=== PATIENT | male | born 1990 | race Caucasian/White ===

== ENCOUNTER 2024-08-09 02:57 | Observation (INO) | payer OTHER, SELFPAY ==
[2024-08-08 20:13] VITALS: BP 131/85
[2024-08-08 20:25] LABS: % Basophils 0.7 % (0-2); % Eosinophils 2.9 % (0-6); % Immature Granulocytes 0.3 % (0-0.5); % Lymphocytes 40.2 % (20.5-51.1); % Neutrophils 47.9 % (42.2-75.2); Absolute Basophils 0.1 10^3/uL (0-0.2); Absolute Eosinophils 0.2 10^3/uL (0-0.7); Absolute Monocytes 0.6 10^3/uL (0.1-0.6); Absolute Neutrophils 3.6 10^3/uL (1.4-6.5); Hematocrit 39.8 % (39.0-52.0); Mean Corp Hgb Conc. 35.2 g/dL (33.0-37.0); Mean Corpuscular Hgb 28.6 pg (27.0-31.0); Mean Corpuscular Volume 81.2 fL (80.0-94.0); Mean Platelet Volume 10.8 fL (7.4-10.4); Nucleated Red Blood Cells % 0 % (-); Platelet Count 259 10^3/uL (130-400); Red Cell Dist. Width 13.2 % (11.5-14.5); White Blood Cell Count 7.5 10^3/uL (4.8-10.8)
[2024-08-08 20:44] LABS: ALT (SGPT) 32 U/L (0-50); AST (SGOT) 28 U/L (17-59); Albumin 4.5 g/dl (3.5-5.0); Alkaline Phosphatase 78 U/L (38-126); Blood Urea Nitrogen 18 mg/dl (9-20); Calcium 9.5 mg/dl (8.4-10.2); Carbon Dioxide 26 mmol/L (22-30); Chloride 103 mmol/L (98-107); Glucose 124 mg/dl (70-99); Sodium 142 mmol/L (135-145); Total Bilirubin 0.5 mg/dl (0.2-1.3); Total Protein 7.4 g/dl (6.3-8.2); eGFR > 60.00
[2024-08-08 22:27] VITALS: BMI 31.5
[2024-08-08 22:29] VITALS: BP 143/72
[2024-08-08 23:00] VITALS: BP 107/62
--- NOTE | 2024-08-08 23:04 | ED.GENMED ---
History of Present Illness
General
Chief Complaint: Rectal Bleeding
Source: patient
Exam Limitations: none
Time Seen by Provider: 08/08/24 22:11
History of Present Illness
History of Present Illness:
This is a 33 year old male that comes in with c/o blood in his stool. State that he had blood in his stool on and off for a couple of years. States that he did see a colorectal and was told that he had fissures. States that he was told to increase
his fiber and it went away. Today he went to the Bathroom and his said that the toilet looked like he had a stool with a period. Denies any fever, chills, chest pain, SOB, abd pain, nausea, vomiting, diarrhea, headache, dizziness, urinary
burning.
Past History
Past History
ED Past Medical History: HTN, Hypercholesterolemia, NIDDM and Psychiatric (Anxiety)
ED Past Surgical History: Other ([place] teeth extraction, pilonidal cyst removal)
Social History
Tobacco: Non-smoker
Alcohol: None
Drug: None
Personal:
Living: with family
Employment: Employed
Review of Systems
Review of Systems
All Other Systems: ROS reviewed and negative except as documented in HPI and ROS
Constitutional: Reports no symptoms; Denies fever or chills
EENT: Reports no symptoms
Respiratory: Reports no symptoms; Denies cough or trouble breathing
Cardiac: Reports no symptoms; Denies chest pain
ABD/GI: Reports bloody stools; Denies abdominal pain, nausea, vomiting or diarrhea
: Reports no symptoms; Denies dysuria, frequency or urgency
Musculoskeletal: Reports no symptoms
Skin: Reports no symptoms
Neurological: Reports no symptoms; Denies dizzy or headache
Psychiatric: Reports no symptoms
Phy Exam
General Physical Exam
General Presentation: well appearing and no apparent distress
General age: appears stated age
General Skin: warm and dry
General Habitus: normal
General Mental: alert
General Hydration: dry mucous membranes
ENT Exam
ENT Exam: TM's normal, pharynx normal and neck supple
Eye Exam
Eye Exam: EOMI
Cardiovascular Exam
Cardiovascular Exam: regular rate/rhythm, no edema, no murmur and normal peripheral pulses
Pulmonary Exam
Pulmonary Exam: lungs clear, no respiratory distress, no rales, chest non tender, no crackles, no rhonchi, no wheezing and no cough
Gastrointestinal Exam
Gastrointestinal Exam: normal bowel sounds, non tender, soft, no organomegaly, no pulsatile mass, non distended and other (stool brown hem positive)
Musculoskeletal Exam
Musculoskeletal Exam: full ROM and no edema
Skin Exam
Skin Exam: normal color, warm/dry, no rash and no petechia
Psychiatric Exam
Psychiatric Exam: normal mood/affect
Course
Orders/Labs/Results
Orders:
Orders
08/08/24 20:20
Complete Blood Count/With Diff Urgent
Comprehensive Metabolic Panel Urgent
08/08/24 23:04
CT Abd/pelvis W Iv Cont Urgent
Comment:
Reason For Exam: Blood in his stool,
0.9% Sodium Chloride 500 ml [Nss] 500 ml IV BOLUS
Abnormal Lab Results
08/08/24
20:20
MPV 10.8 H fL
(7.4-10.4)
Glucose 124 H mg/dl
(70-99)
08/08/24 20:20
08/08/24 20:20
Hyperglycemia,
Vital Signs
Initial and Last Documented VS:
Initial Vital Signs
Temp Pulse Resp BP Pulse Ox
98.0 F 75 18 131/85 98
08/08/24 20:13 08/08/24 20:13 08/08/24 20:13 08/08/24 20:13 08/08/24 20:13
Last Documented Vital Signs
Temp Pulse Resp BP Pulse Ox
98.0 F 83 18 107/62 96
08/08/24 20:13 08/08/24 22:31 08/08/24 20:13 08/08/24 23:00 08/08/24 23:00
Md Pediatric Allergist consulted with Physician
[facility]d Pediatric Allergist consulted with physician?: Yes
Name of Physician Consulted: Alcides Murry
MDM/Problems Addressed
Differential Diagnosis Includes:
Colitis, Fissures,
MDM/Problems Addressed:
This is a 33 year old male that comes in with c/o blood in his stool when he went to the bathroom tonight.
Will check labs and get CT scan.
Back into see patient. Explained that his blood work was normal but with the rectal exam his stool appeared brown but was Hem positive. On the CT scan there is a questionable mass. Will admit patient for further evaluation.
Chronic conditions affecting care:
Fissures
Acute Exacerbation and/or Progression of Chronic Illness:
Fissures
*Radiology
Radiology exam reviewed: radiology read reviewed (CT Night hawk-Circumferential rectal wall thickening s present without associated inflammatory changes, mostly symmetric although mass not excluded particularly towards the left. Findings Could be
infectious/inflammatory although lack of inflammatory changes may suggest either subacute or chronic) and other (CT cont- process. remainder of the gastrointetinal tract appears normal. )
*Pulse Oximetry
Patient hypoxic: no
*EKG
Interpreted by ED Provider?: NA
Rate: EKG- N/A
*Waste Water Operator Interpretation
Rate: Waste Water Operator- N/A
*Critical Care Note
Total Time (30-74mins, 75-104mins- exclusive of procedures): Not Applicable
ED Attending Note
-
Portions of this chart may have been created with voice recognition software.� Occasional wrong word or��sound alike� substitutions may have occurred due to the inherent limitations of voice recognition software.
Discharge Plan
Departure
Patient Disposition: Admit
Date of Disposition: 08/09/24
Time of Disposition: 00:54
Admit to: Med/Surg
Presentation/result/management discussed w/ accepting MD/DO: Hospitalist
Patient with high blood pressure during this ER visit?: No
Condition: Good
Covid-19: Not Applicable
Discharge Problem:
Rectal bleeding, Rectal mass
Prescriptions:
No Action
azithromycin 250 MG tablet
250 mg PO DAILY Qty: 4 0RF
pantoprazole 40 MG tablet,delayed release (DR/EC)
40 mg PO DAILY Qty: 30 0RF
prednisone 50 MG tablet
50 mg PO DAILY Qty: 5 0RF
Referrals:
Kandis Delgado MD [Family Provider] -
Interventions
Interventions:
*Risk Screen - Suicide Last Done: 08/08/24 20:15
*General Assessment Last Done: 08/08/24 20:16
*Neglect/Abuse Screening Last Done: 08/08/24 20:15
ED- Fall Risk Assessment Last Done: 08/08/24 22:27
*ED COVID-19 Vaccine History Last Done: 08/08/24 20:15
DX-Blpoey-Uxprduydnj Assessment Last Done: 08/09/24 00:14
ED- Cardiac Assessment Last Done: 08/09/24 00:14
ED- Pulmonary Assessment Last Done: 08/09/24 00:14
Discharge Date and Time
Print Language: YAKUT
[2024-08-09] VITALS (17 sets, daily range): BP systolic 119–145; BP diastolic 82–108; PULSE 74–109; BMI 30.7
[2024-08-09] MEDS: NSS 500 IV (00:17)
--- NOTE | 2024-08-09 02:14 | HPS.HSE ---
Family Physician
-
Family Physician: Kandis Delgado
Chief Complaint
-
Rectal bleeding
History of Present Illness
This is a 23-year-old male with past medical history of ato-ukggtbs-ypjrfomrp diabetes, obesity and presents to the emergency department with subacute episode of rectal bleeding that appeared to be worse today.
Patient reports that he has a history of rectal bleeding that started about 1 year ago. He was seen by GI in January and was diagnosed with fissures. By the time he was placed on fiber supplementation. He reported that his symptoms did improve when
he had mild bleeding until recently. He says the bleeding started again about 2 to 3 weeks ago. He is pending an appointment with GI. He stated was able to tolerated but he had significant amount of bleeding today. Patient reports very mild
abdominal discomfort. There was no tenderness most. He denied having fevers or chills. He reports red blood mixed with stool. Patient denies any personal history of inflammatory bowel disease. Denies family history of inflammatory bowel
disease. He denies family history of colon cancer. Denies family history of bleeding diathesis or coagulopathy.
In the ED ED patient was afebrile blood pressure was 130s over 80, pulse was 76. Hemoglobin was within normal limits and unchanged from prior. He had a normal platelet count. Chemistries, BUN/creatinine were within normal limits. He had a CT of
the abdomen pelvis which showed circumferential rectal wall thickening without associated inflammatory changes mostly symmetric although a mass cannot be excluded. The rest of the gastrointestinal tract appeared normal.
Medical History
Past Medical History
Past Medical History: Reports NIDDM and Other (Obese)
Additional Past Medical History:
anal fissure
Past Surgical History: Reports None
Social History
Tobacco: Non-smoker
Alcohol: Occasional
Drug: None
Personal:
Living: With Family
Employment: Employed
Family History
Family History: Diabetes
Allergies / Home Medications
Allergies reflects when Allergies were last updated in [employer].
Home Medications with original date entered in [employer]
Allergy/Medication List:
Allergies
Allergy/AdvReac Type Severity Reaction Status Date / Time
No Known Allergies Allergy Unverified 08/27/19 10:45
Home Medications
canagliflozin 100 mg tablet (Invokana) 100 mg PO DAILY 08/09/24
fluoxetine 40 mg capsule 40 mg PO DAILY 08/09/24
glimepiride 2 mg tablet 2 mg PO BID 08/09/24
inulin 2 gram chewable tablet (Fiber Gummies) 3 PO 08/09/24
inulin-sorbitol 2 gram chewable tablet 1 tab PO BID 08/09/24
omega-3 fatty acids 1,000 mg PO DAILY 08/09/24
rosuvastatin 20 mg tablet 20 mg PO DAILY 08/09/24
tirzepatide 10 mg/0.5 mL subcutaneous pen injector (Mounjaro) 10 mg SC .Q WEEK Wednesdays08/09/24
Review of Systems
-
History Source: Patient
Constitutional: Reports No Symptoms
EENT: Reports No Symptoms
Respiratory: Reports No Symptoms
Cardiac: Reports No Symptoms
Abdomen/GI: Reports Bloody Stools
: Reports No Symptoms
Musculoskeletal: Reports No Symptoms
Skin: Reports No Symptoms
Neurological: Reports No Symptoms
Endocrine: Reports No Symptoms
Hematologic/Lymphatic: Reports No Symptoms
Psych: Reports No Symptoms
Physical Exam
Vital Signs
Vital Signs
Temp Pulse Resp BP Pulse Ox
98.0 F 76 17 133/82 96
08/08/24 20:13 08/09/24 01:01 08/09/24 00:00 08/09/24 00:13 08/09/24 01:00
Physical Exam
General: Well Developed, Well Nourished, No Apparent Distress and Comfortable
HEENT: NormoCephalic, Anicteric, Moist mucous membranes and Atraumatic
Respiratory: Clear
Cardiac: S1/S2
Breast: Deferred by me
GI: Soft, Non Tender, Non Distended and Normal Bowel Sounds
Rectal: Brown and Red
Musculoskeletal: No Clubbing, No Cyanosis and No Edema
Skin: Warm
Neuro: AO x 3
Hematologic/Lymphatic: No Lymphadenopathy
Psych: Calm
Laboratory Results
-
08/08/24 20:20
08/08/24 20:20
Laboratory Results
Total Bilirubin 0.5 mg/dl (0.2-1.3) 08/08/24 20:20
AST 28 U/L (17-59) 08/08/24 20:20
ALT 32 U/L (0-50) 08/08/24 20:20
Alkaline Phosphatase 78 U/L (38-126) 08/08/24 20:20
Data Reviewed
-
CT Scan: Report Reviewed by me
Lab Data: Labs Reviewed by me
Old Records: Reviewed
Impression/Plan
-
IMPRESSION:
Patient with h/o anal fissue, dm II, comes in with subacute rectal bleeding. No history of crohns. The CT scan is not describing inflammatory changes but fissures seem painless based on history. There is a questionable rectal mass on CT scan.
PLAN:
1.Rectal bleeding - bright per rectum mixed with stools. Possibly hemorrhoidal versus related to anal fissure. hemodynamically stable. No current bleeding. Hgb normal.
- admit to med/surg observation
- clear liquid diet for now
- trend h/h
- laxatives prn
- CT w/ question of rectal mass, GI consult
2. DM II
- continue glimepride
- bs achs
- continue statin
DVT PPX - SCDs
Code Status - Full
[2024-08-09 06:55] LABS: Hematocrit 40.6 % (39.0-52.0); Hemoglobin 14.4 g/dL (13.0-18.0); Mean Corp Hgb Conc. 35.5 g/dL (33.0-37.0); Mean Corpuscular Hgb 29.4 pg (27.0-31.0); Mean Corpuscular Volume 82.9 fL (80.0-94.0); Platelet Count 236 10^3/uL (130-400); Red Cell Dist. Width 12.8 % (11.5-14.5)
[2024-08-09 07:05] LABS: INR 1.03; PT 13.3 Sec (11.4-14.6)
[2024-08-09] MEDS: CRESTOR 20 MG PO (08:05)
[2024-08-09] MEDS: PROZAC 40 MG PO (08:06)
[2024-08-09] MEDS: AMARYL PO (09:12)
--- NOTE | 2024-08-09 09:57 | CON.GI ---
Addendum entered and electronically signed by Sandra Xie MD 08/09/24 16:57:
I saw and examined the patient.
The BUSINESS CENTER REPRESENTATIVE's note was reviewed and I agree with the note.
-- rectal bleeding . no prior colonoscopy. family hx of colon polyps +. No family history of colorectal cancer or IBD
-- hx of anal fissure
-- abnormal CT abd 08/08/24 : IMPRESSION: There is circumferential wall thickening of the rectum with submucosal fatty deposition superiorly suggestive of chronic inflammation/proctitis. There is no discrete mass however there is slight asymmetric
thickening along the anterior left aspect of the lower rectum. Further evaluation may be considered with colonoscopy as clinically warranted.
plan
Patient is agreeable for colonoscopy tomorrow
Clear liquid diet today. N.p.o. after midnight
Bowel prep today
Addendum entered and electronically signed by Julia Adame NP 08/09/24 12:30:
Last dose of Mounjaro was 1 week ago. The pt and his are agreeable to colonoscopy tomorrow. Dr. Romero aware.
Original Note:
Consultation
-
Date/Time Consultation Requested: 08/09/24 @ 03:50
Date/Time Consultation Performed: 08/09/24 @ 09:30
Requesting Provider: Dr. De La Cruz
Performing Provider: PIERRE Herman; Dr. Xie
Reason for Consultation: rectal bleeding, ?rectal mass per CT
Medical History
Chief Complaint / HPI
Chief Complaint: rectal bleeding
History of Present Illness:
The pt is a 33 yo male with a PMH significant for DM2, anal fissure, who presented to the ER with complaints of rectal bleeding which we are being asked to evaluate for. The pt reports that he has been having rectal bleeding on and off for the past
year. He saw Dr. Hahn at [facility] in January who diagnosed him with a fissure. He was prescribed suppositories which did resolve the bleeding initially but after a month he had recurrent episodes. He notes scant blood upon wiping after bowel
movements intermittently since that time but yesterday he reports after having a bowel movement he had a large amount of blood in the toilet mixed in with brown stool warranting ER evaluation. He notes he had been constipated for 2 days prior and
was straining to move his bowels. He does have some itching at the rectum but no pain or pressure. Prior to this he was having formed, soft bowel movements daily. He denies any melena. He denies any shortness of breath, chest pain, lightheadedness,
or dizziness. He denies any syncope. He otherwise denies any abdominal pain, fevers, chills, nausea, or vomiting. He has occasional indigestion and takes tums or pepcid as needed. He denies use of NSAID's or blood thinners. He is on Mounjaro which
he has been on for 3 years and tolerating well without any adverse GI effects. He denies any family history of colon cancer but his mother had colon polyps. He denies any use of NSAIDs or blood thinners. He denies any alcohol use. He has never
had a colonoscopy or EGD in the past. He denies any family history of IBD. Upon evaluation in the ER, his hemoglobin was normal at 14.0. He underwent a CT of the abdomen and pelvis with IV contrast showing circumferential wall thickening of the
rectum with submucosal fatty deposition superiorly suggestive of chronic inflammation/proctitis with a slight asymmetric thickening along the anterior left aspect of the lower rectum, which cannot rule out mass per radiology read. Recommended
colonoscopy for further evaluation. ESR and CRP were normal. Glucose was mildly elevated 124 otherwise labs essentially within normal limits. INR 1.03. He was placed on clear liquid diet and admitted for further evaluation by GI.
Past Medical History
Past Medical History: NIDDM, Psychiatric (anxiety) and Other (obesity, anal fissure)
Past Surgical History: None
Social History
Tobacco: Non-Smoker
Alcohol: None
Drug: None
Personal:
Living: With Family
Family History
Family History: Other (mother-colon polyps, no CRC)
Allergies / Home Medications
Allergy/AdvReac Type Severity Reaction Status Date / Time
No Known Allergies Allergy Unverified 08/27/19 10:45
�Medication �Instructions �Recorded
calcium polycarbophil 625 mg 625 mg PO DAILY 08/09/24
tablet (FiberCon)
canagliflozin 100 mg tablet 100 mg PO DAILY 08/09/24
(Invokana)
fluoxetine 40 mg capsule 40 mg PO DAILY 08/09/24
glimepiride 2 mg tablet 2 mg PO BID 08/09/24
omega-3 acid ethyl esters 1 gram 2 cap PO BID 08/09/24
capsule (Lovaza)
rosuvastatin 20 mg tablet 20 mg PO DAILY 08/09/24
tirzepatide 10 mg/0.5 mL 10 mg SC WE 08/09/24
subcutaneous pen injector
(Janice)
Review of Systems
-
History Source: Patient and Family
Constitutional: Reports No Symptoms
EENT: Reports No Symptoms
Respiratory: Reports No Symptoms
Cardiac: Reports No Symptoms
Abdomen/GI: Reports Constipated and Bloody Stools
: Reports No Symptoms
Musculoskeletal: Reports No Symptoms
Skin: Reports No Symptoms
Neurological: Reports No Symptoms
Endocrine: Reports No Symptoms
Hematologic/Lymphatic: Reports No Symptoms
Vital Signs
Temp Pulse Resp BP Pulse Ox
98.0 F 82 14 140/93 95
08/08/24 20:13 08/09/24 06:52 08/09/24 06:52 08/09/24 08:00 08/09/24 08:30
Physical Exam
Exam
General: Well Developed, Well Nourished, No Apparent Distress and Comfortable
HEENT: Normocephalic, Anicteric and Atraumatic
Respiratory: Clear
Cardiac: S1/S2 and Regular Rhythm
GI: Soft, Non Tender, Non Distended and Normal Bowel Sounds
Rectal: Other (external exam only-no fissure or hemorrhoids with valladares/brown stool; internal exam per ER documentation with brown stool mixed with blood)
Musculoskeletal: No Edema
Skin: Warm and Dry
Neuro: Awake, Alert and Oriented
Psych: Calm
Results
WBC 7.0 10^3/uL (4.8-10.8) 08/09/24 06:41
Hgb 14.4 g/dL (13.0-18.0) 08/09/24 06:41
Hct 40.6 % (39.0-52.0) 08/09/24 06:41
MCV 82.9 fL (80.0-94.0) 08/09/24 06:41
Plt Count 236 10^3/uL (130-400) 08/09/24 06:41
Absolute Neuts (auto) 3.6 10^3/uL (1.4-6.5) 08/08/24 20:20
PT 13.3 Sec (11.4-14.6) 08/09/24 06:41
INR 1.03 08/09/24 06:41
Sodium 142 mmol/L (135-145) 08/08/24 20:20
Potassium 4.0 mmol/L (3.5-5.1) 08/08/24 20:20
Chloride 103 mmol/L (98-107) 08/08/24 20:20
Carbon Dioxide 26 mmol/L (22-30) 08/08/24 20:20
BUN 18 mg/dl (9-20) 08/08/24 20:20
Creatinine 1.0 mg/dL (0.7-1.3) 08/08/24 20:20
Calcium 9.5 mg/dl (8.4-10.2) 08/08/24 20:20
Total Bilirubin 0.5 mg/dl (0.2-1.3) 08/08/24 20:20
AST 28 U/L (17-59) 08/08/24 20:20
ALT 32 U/L (0-50) 08/08/24 20:20
Alkaline Phosphatase 78 U/L (38-126) 08/08/24 20:20
Diagnostic Image Results:
08/08/24 CT A/P w/IV contrast: IMPRESSION: There is circumferential wall thickening of the rectum with submucosal fatty deposition superiorly suggestive of chronic inflammation/proctitis. There is no discrete mass however there is slight asymmetric
thickening along the anterior left aspect of the lower rectum. Further evaluation may be considered with colonoscopy as clinically warranted.
Prior GI Procedures:
EGD: none
Colonoscopy: none
Assessment / Plan
-
The pt is a 33 yo male with a PMH significant for DM2, anal fissure, who presented to the ER with complaints of rectal bleeding which we are being asked to evaluate for. He reports intermittent rectal bleeding for the past year, seen by GI at
[facility] where he was diagnosed with a anal fissure and treated as above. Yesterday evening with a large volume of blood in the toilet bowl mixed in with brown formed stool prompting ER evaluation. He denies any abdominal pain or rectal pain, but
does report some itching. He was constipated 2 days prior to this. His hemoglobin is normal with otherwise unremarkable labs. CT imaging showing thickening of the rectal wall suggestive of possible chronic inflammation. Cannot exclude mass per
radiology read. No family history of colon cancer or IBD. He has had no further bleeding.
Problem list:
-rectal bleeding
-circumferential rectal wall thickening, ?chronic inflammation v mass per CT read
-DM2
-hx anal fissure
Recommendations:
-Etiology of rectal bleeding possibly 2/2 anal fissure v hemorrhoids v diverticular v other. Rectal wall thickening v ?mass on CT.
-Recommend colonoscopy for further evaluation given CT findings. Discussed with him that this can be done tomorrow inpatient versus more urgently outpatient pending his preference. Did review with Dr. Xie who advises we can proceed tomorrow
given the CT findings if he is agreeable.
-Ordered Colyte prep
-ESR and CRP are normal suggesting less likely to be inflammatory process
-No obvious fissures or hemorrhoids on external exam
-Monitor H&H
-Monitor for recurrent bleeding
-Ok for clear liquid diet and n.p.o. after midnight if he proceeds with the colonoscopy
-Further recommendations pending above
Data Reviewed
-
CT Scan: Report Reviewed by me and Discussed with Physician
-
-
Thank you for consultation and allowing me to participate in the patient's care. Please call the solutions architect consultant GI physician during the after hours with any questions or concerns.
[2024-08-09 10:27] LABS: Erythrocyte Sed Rate 13 mm/hour (0-20)
[2024-08-09 10:53] LABS: C-Reactive Protein < 5.00 mg/L (0.0-10.00)
--- NOTE | 2024-08-09 11:38 | CM ---
CM reviewed chart. CM introduced self and role. also in room. Observation status was explained to patient and he signed the [employer] Obs letter. Copy given to patient. Patient lives with and children in a [place] home with 3 steps
to enter. He works FT, drives and is independent. Denies any +SDOHs. He has an active PCP and pharmacy. will provide transportation once patient is discharged.
ANTICIPATED DISCHARGE DISPOSITION: Discharge home with , when medically cleared.
[2024-08-09 12:55] LABS: Glucose - Point of Care 105 mg/dl (70-99)
--- NOTE | 2024-08-09 13:07 | W.PN.UPDATE ---
Update Note
Progress Note Update
Seen by Dr Zengun this am .
No further blood in the stools or bloody stools. No BM since this morning. Hemodynamically stable. Blood count stable.
Discussed with GI-plan for colonoscopy tomorrow noted. Patient is in agreement with treatment plan.
[2024-08-09] MEDS: TYLENOL 650 MG PO (13:16)
[2024-08-09] MEDS: AMARYL 2 MG PO (17:04)
[2024-08-09] MEDS: NULYTELY SOLUTION 2 LITERS PO (17:22)
[2024-08-09 17:26] LABS: Glucose - Point of Care 117 mg/dl (70-99)
[2024-08-10 03:15] VITALS: BP 140/79; BP 146/93; BP 151/101; PULSE 64; PULSE 79; PULSE 91
--- NOTE | 2024-08-10 05:38 | PTCARENOTE ---
Pt unable to tolerate colonoscopy prep. RN encouraged multiple times to finish but pt refused. SWEATER OPERATOR made aware as well as on-call GI. No new orders at this time. Pt is resting comfortably with call ramsay within reach.
[2024-08-10 06:26] LABS: Glucose - Point of Care 114 mg/dl (70-99)
[2024-08-10] MEDS: DULCOLAX 20 MG PO (06:46)
[2024-08-10] MEDS: CITROMA 300 ML PO (06:46)
[2024-08-10 07:35] LABS: Hemoglobin 15.5 g/dL (13.0-18.0); Mean Corp Hgb Conc. 35.2 g/dL (33.0-37.0); Mean Corpuscular Hgb 28.5 pg (27.0-31.0); Mean Platelet Volume 10.8 fL (7.4-10.4); Platelet Count 252 10^3/uL (130-400); Red Blood Cell Count 5.43 10^6/uL (4.70-6.10); Red Cell Dist. Width 12.8 % (11.5-14.5); White Blood Cell Count 7.8 10^3/uL (4.8-10.8)
[2024-08-10 07:57] VITALS: BP 146/95
[2024-08-10] MEDS: AMARYL 2 MG PO (09:46)
[2024-08-10] MEDS: PROZAC 40 MG PO (09:46)
[2024-08-10] MEDS: CRESTOR 20 MG PO (09:46)
[2024-08-10 11:33] VITALS: BP 124/93; BP_SYST 12
[2024-08-10 11:45] VITALS: BP 107/82; BP_SYST 15
[2024-08-10 12:00] VITALS: BP 114/89; BP_SYST 10
[2024-08-10 12:21] VITALS: BP 130/76
[2024-08-10 12:52] LABS: Glucose - Point of Care 120 mg/dl (70-99)
--- NOTE | 2024-08-10 13:44 | W.PN.HOSP.TC ---
Today's Communication/Plan
-
DC
Assessment / Plan
Assessment / Plan
Rectal bleeding - bright per rectum mixed with stools. Possibly hemorrhoidal . hemodynamically stable. No recurrent bleeding. Hgb stable
- CT w/ question of rectal mass
-Colonoscopy shows no mass or abnormal mucosa. Mucosa and rectum are biopsied.
Internal small hemorrhoids noted without bleeding.
Possibly hemorrhoidal bleeding. Patient advised high-fiber diet and follow with GI regarding the biopsies reports.
DM II
- continue glimepride
- continue statin
DVT PPX - SCDs
Code Status - Full
Went over the colonoscopy findings with the patient and the .
Medically stable for discharge.
Anticipated Discharge: Today
Subjective/Interval History
-
Date of Service: August 10, 2024
Back from colonoscopy. Denies nausea vomiting or abdominal pain.
Denies shortness of breath.
Objective Data
-
Labs:
Laboratory Results
08/10/24
07:10
WBC 7.8
Hgb 15.5
Hct 44.0
Plt Count 252
Vital Signs:
Vital Signs
Temp Pulse Resp BP Pulse Ox
98 F 76 18 130/76 98
08/10/24 12:21 08/10/24 12:21 08/10/24 12:21 08/10/24 12:21 08/10/24 12:21
Review of Systems
-
Constitutional: Denies Fever
Respiratory: Denies Cough
Cardiac: Denies Chest Pain
Neuro: Denies Dizzy
Physical Exam
-
General: No Apparent Distress
Respiratory: Non Labored Respirations; Negative Accessory Resp Muscle Use
GI: Soft and Nontender
Neuro: AO x 3
Data Reviewed
-
Labs: Labs Reviewed by me
--- NOTE | 2024-08-10 14:41 | CM ---
Pt is discharged to home today with .
Plan: No needs.
== END 2024-08-10 16:36 | disposition home or self-care (01) ==
LOC: 4 EAST ACU 02:57
PROVIDERS: Emergency Medicine; Nurse Practitioner Family; ADMITTING PHYSICIAN Internal Medicine; ATTENDING PHYSICIAN Internal Medicine; CONSULT PHYSICIAN Internal Medicine Gastroenterology; EMERGENCY PHYSICIAN Student in an Organized Health Care Education/Training Program; FAMILY PHYSICIAN Internal Medicine
DX: K92.1 Melena (principal); K64.8 Other hemorrhoids; K59.00 Constipation, unspecified; E11.65 Type 2 diabetes mellitus with hyperglycemia; I10 Essential (primary) hypertension; E78.00 Pure hypercholesterolemia, unspecified; F41.9 Anxiety disorder, unspecified; E66.9 Obesity, unspecified; K60.2 Anal fissure, unspecified; M51.379 Other intervertebral disc degeneration, lumbosacral region without mention of lumbar back pain or lower extremity pain; Z68.30 Body mass index [BMI] 30.0-30.9, adult; Z79.85 Long-term (current) use of injectable non-insulin antidiabetic drugs; Z83.719 Family history of colon polyps, unspecified
CPT/HCPCS: 45380; 88305; 74177; 80053; 82962; 85025; 85027; 85610; 85652; 86140; 86850; 86900; 86901; G0378; Q9967

== ENCOUNTER 2025-07-16 19:14 | Emergency (ER) | payer OTHER, SELFPAY ==
[2025-07-16 19:17] VITALS: BP 140/89
--- NOTE | 2025-07-16 20:34 | ED.GENMED ---
History of Present Illness
General
Chief Complaint: Male Genito-Urinary Symptoms
Source: patient
Exam Limitations: none
Time Seen by Provider: 07/16/25 20:25
History of Present Illness
History of Present Illness:
34-year-old male presents complaining of right groin and testicular pain intermittent over the past couple weeks. Hurts to move. It is painful after intercourse. He denies any drainage or discharge. No fevers. No known injury. He states the
pain is made worse if he bends his hip and rotates his hip outward. Is mainly groin pain sometimes radiate to the testicle no other complaints
Past History
Past History
ED Past Medical History: HTN, Hypercholesterolemia, NIDDM and Psychiatric (Anxiety)
ED Past Surgical History: Other ([place] teeth extraction, pilonidal cyst removal)
Social History
Tobacco: Non-smoker
Alcohol: None
Drug: None
Personal:
Living: with family
Employment: Employed
Phy Exam
Physical Exam
Physical Exam:
General: Well-appearing male no acute respiratory distress
HEENT normal cephalic atraumatic
Heart: Regular rate and rhythm
Lungs: Clear no wheeze
exam: Circumcised male no swelling of the scrotum. Reflex intact bilaterally. No hernias or swelling noted
Musculoskeletal exam: Increased pain with hip flexion and external rotation of the hip. No significant tenderness to palpation about the groin or lateral hip. No deformities
Course
Orders/Labs/Results
Orders:
Orders
07/16/25 19:21
Scrotum US [US Scrotum] Urgent
Comment:
Reason For Exam: R testicle pain
Vital Signs
Initial and Last Documented VS:
Initial Vital Signs
Temp Pulse Resp BP Pulse Ox
97.7 F 85 18 140/89 97
07/16/25 19:17 07/16/25 19:17 07/16/25 19:17 07/16/25 19:17 07/16/25 19:17
Last Documented Vital Signs
Temp Pulse Resp BP Pulse Ox
97.7 F 85 18 144/89 96
07/16/25 19:17 07/16/25 19:17 07/16/25 19:17 07/16/25 22:00 07/16/25 22:15
MDM/Problems Addressed
Differential Diagnosis Includes:
Groin pain that radiates into the testicles occasionally. Consider torsion versus hernia versus hydrocele versus musculoskeletal pain
Ultrasound was ordered of the scrotum through triage which I reviewed and is negative for acute finding. Exam more consistent with a musculoskeletal pain. Discussed role and offered x-rays however patient declined as he feels there was no other
injury to suggest a bony abnormality. I thought this was reasonable. Recommended anti-inflammatories and orthopedic follow-up.
*Pulse Oximetry
SaO2: 97
Oxygen Mode of Delivery: Room air
Patient hypoxic: no
*Critical Care Note
Total Time (30-74mins, 75-104mins- exclusive of procedures): Not Applicable
ED Attending Note
-
Portions of this chart may have been created with voice recognition software.� Occasional wrong word or��sound alike� substitutions may have occurred due to the inherent limitations of voice recognition software.
Discharge Plan
Departure
Patient Disposition: Home (Routine Discharge)
Date of Disposition: 07/16/25
Time of Disposition: 22:59
Patient with high blood pressure during this ER visit?: No
Discharge Problem:
Groin pain
Prescriptions:
New
prednisone 20 mg tablet
40 mg PO DAILY 5 Days Qty: 10 0RF
No Action
fluoxetine 40 mg Capsule
40 mg PO DAILY
glimepiride 2 mg Tablet
2 mg PO BID
rosuvastatin 20 mg Tablet
20 mg PO DAILY
Invokana 100 mg Tablet
100 mg PO DAILY
Mounjaro 10 mg/0.5 mL Pen Injector
10 mg SC WE
calcium polycarbophil [FiberCon] 625 mg Tablet
625 mg PO DAILY
omega-3 acid ethyl esters [Lovaza] 1 gram Capsule
2 cap PO BID
Referrals:
Kandis Delgado MD [Family Provider, Internal Medicine]
Stand Alone Forms: Return to Work
Activity Restrictions/Additional Instructions:
Rest. Use anti-inflammatories as directed. Return here if worse otherwise follow-up with orthopedics
Interventions
Interventions:
*Risk Screen - Suicide Last Done: 07/16/25 19:18
*General Assessment Last Done: 07/16/25 19:18
*Neglect/Abuse Screening Last Done: 07/16/25 19:18
*ED- Fall Risk Assessment Last Done: 07/16/25 20:35
*ED COVID-19 Vaccine History Last Done: 07/16/25 19:18
*ED Influenza Vaccine History Last Done: 07/16/25 19:18
ED-Male Genitourinary Assessment Last Done: 07/16/25 20:33
Discharge Date and Time
Print Language: COMORAN
[2025-07-16 21:00] VITALS: BP 142/87
[2025-07-16 22:00] VITALS: BP 144/89
== END 2025-07-16 23:14 | disposition home or self-care (01) ==
LOC: EMR 19:14
PROVIDERS: EMERGENCY PHYSICIAN Emergency Medicine; FAMILY PHYSICIAN Internal Medicine
DX: R10.31 Right lower quadrant pain (principal); E11.9 Type 2 diabetes mellitus without complications; I10 Essential (primary) hypertension; E78.00 Pure hypercholesterolemia, unspecified; F41.9 Anxiety disorder, unspecified; Z79.84 Long term (current) use of oral hypoglycemic drugs; Z79.85 Long-term (current) use of injectable non-insulin antidiabetic drugs
CPT/HCPCS: 99284; 76870; 93976